=== PATIENT | female | born 1990 | race Caucasian/White ===

== ENCOUNTER → 2016-07-02 | Outpatient (CLI) | payer BC, MEDICAID ==
[~2016-07-02] MED LIST: COLACE-DPS100 MG PO; FEOSOL-DPS325 MG PO; MOTRIN-DPS800 MG PO; NIPPLECREAM TP; PERCOCET 5 DPS1 TAB PO; PRENATAL VIT1 TAB PO; PRILOSEC DPS20 MG PO
== END | disposition home or self-care (01) ==
LOC: RAD.S 06-29 09:30
DX: R10.9 Unspecified abdominal pain (principal); N20.0 Calculus of kidney

== ENCOUNTER 2016-07-14 05:11 | Emergency (ER) | payer BC, MEDICAID ==
--- NOTE | 2016-07-24 07:17 | ER ---
ADMIT: 07/14/2016 RM/LOC: ER [facility] MR#: [id number] [address] [id number] [facility] [address] [place] [address] Emergency Room Report SEX: F AGE: 26 : 1990 DATE: 07/14/2016 ADDENDUM: CHIEF COMPLAINT: Left flank pain. See T-sheet for complete history and physical. The patient states that she has some left flank pain that has been going on for about 5 hours, but this feels similar to when she had a history of a kidney stone before. She states that she had a 7 mm stone that was unlikely to pass and she was waiting for to get done before they did a lithotripsy. She did have an ultrasound done recently, approximately a week and half to 2 weeks ago, which they did not see the stone at that time. She was supposed to get set up for CT, but has not had that done yet. I ended up getting labs that show a normal CBC, normal chemistries, slightly elevated CRP at 2.89. Negative urine , but did have signs consistent with a urinary tract infection. The CT renal colic study is pending at this time, but the patient will be treated with Bactrim for urinary tract infection and is to follow up with Dr. Anguiano if symptoms do not improve. Dilip Blackwell MD/ dee JOB #: [id number] CC: Dilip Blackwell MD, Attending Physician
== END 2016-07-14 07:40 | disposition home or self-care (01) ==
LOC: ER 05:11
DX: N39.0 Urinary tract infection, site not specified (principal); I88.9 Nonspecific lymphadenitis, unspecified; Z98.890 Other specified postprocedural states